=== PATIENT | female | born 1960 | race Caucasian/White ===

== ENCOUNTER 2024-03-24 06:09 | Day surgery (SDC) | payer OTHER ==
[2024-03-22 12:36] VITALS: BMI 30.4
[2024-03-24] MEDS ORDERED: Bupivacaine PF 0.5% 30 ML VIAL ONE (06:51)
[2024-03-24] MEDS ORDERED: EPINEPHrine 1 MG/ML VIAL ONE (06:51)
[2024-03-24] MEDS ORDERED: Lidocaine 1% PF 5 ML VIAL ONE (06:52)
[2024-03-24] MEDS ORDERED: Ondansetron PF 4 MG/2 ML Vial ONE (06:52)
[2024-03-24] MEDS ORDERED: PROPOFOL 20 ML ONE (06:52)
[2024-03-24] MEDS ORDERED: Clindamycin/D5W 600 mg/50 ml Premix Bag ONE (07:11)
[2024-03-24] MEDS ORDERED: Midazolam HCl 2 mg/2 ml Vial ONE (07:15)
[2024-03-24] MEDS ORDERED: HYDROcodone/Acetaminophen 5/325 mg Tablet PO PRN ×2 (08:01)
== END 2024-03-24 09:00 | disposition home or self-care (01) ==
LOC: CSHSDC 06:09
PROVIDERS: ATTEND Surgery
PROC: B513ZZA Fluoroscopy of Right Jugular Veins, Guidance (ICD-10-PCS; principal; 2024-03-24)
PROC: 05HM33Z Insertion of Infusion Device into Right Internal Jugular Vein, Percutaneous Approach (ICD-10-PCS; principal; 2024-03-24)
DX: C52 Malignant neoplasm of vagina (principal); I10 Essential (primary) hypertension; K21.9 Gastro-esophageal reflux disease without esophagitis; Z79.899 Other long term (current) drug therapy; Z88.0 Allergy status to penicillin; Z88.8 Allergy status to other drugs, medicaments and biological substances; Z87.891 Personal history of nicotine dependence; Z98.890 Other specified postprocedural states
CPT/HCPCS: 71045; A6258; C1788; J0171; J0665; J1642; J2250; J2405; J2704; J3490

== ENCOUNTER 2024-10-24 12:38 | Outpatient (CLI) | payer OTHER | END 2024-10-24 12:39 | disposition home or self-care (01) | LOC: CSHULT 12:38 | PROVIDERS: ATTEND Internal Medicine | DX: C54.8 Malignant neoplasm of overlapping sites of corpus uteri (principal); Z79.899 Other long term (current) drug therapy; R93.1 Abnormal findings on diagnostic imaging of heart and coronary circulation | CPT/HCPCS: 93306 ==